=== PATIENT | female | born 1965 | race Caucasian/White ===

== ENCOUNTER → 2017-03-27 | Emergency (ER) | payer OTHER ==
[~2017-03-27] VITALS: Ht 144.8 cm; Wt 73.8 kg
[~2017-03-27] MED LIST: ALBU8.5H6 IH; ALPR0.5T PO; CELE200C PO; CELE400C PO; DIPHTH,PERTUSS(ACELL),TET TOX 0.5 ML DISP.SYRIN. VAX IM ONE; FENT1PAT15 TP; FLUC100T7 PO; GABA-585 PO; IPRA3AMP NEB; OMEP40CA5 PO; ONDA4TAB10 SL; ONDANSETRON ODT 4 MG TAB.RAPDIS PO ONE; OXYC20TA PO; PRED2.5T PO; PROM118S2 PO; PROM25TA10 PO; QUET100T4 PO; QUET50TA5 PO; SOLI10TA2 PO; SUMA100T4 PO; TEMA30CA PO; TIZA6CAP3 PO; TRAZ50TA15 PO; ZOLP10TA PO; oxyCODONE/APAP 5/325 1 TAB TABLET PO ONE
[2017-03-27 20:00] VITALS: BP 120/62
--- NOTE | 2017-03-27 21:05 | PHYS DOC ---
Past History Past Medical History: Anxiety, Depression, GERD, Other Past Surgical History: Hip Replacement, Hysterectomy, Other Alcohol Use: Rarely Drug Use: None Adult General Chief Complaint Chief Complaint: KNEE INJURY HPI HPI Patient is a 51-year-old female who presents here today secondary to falling out of her wheelchair and getting stuck in the bathroom for approximately 3-4 hours. Patient is complaining of pain to her right knee. Patient complaining of pain to her right ankles well. Patient denies any head trauma or loss of consciousness. Patient reports that her head hurts and she is trying to use her head to police herself from a stopped position however she denies any fall resulted in head trauma. Patient denies any loss of consciousness. Patient has a nausea vomiting diarrhea fevers shakes chills cough cold runny nose. Review of systems: Constitutional: Denies fever or chills Eyes: Denies change in visual acuity, redness, or eye pain HENT: Denies nasal congestion or sore throat All other systems were reviewed and found to be within normal limits, except as documented in this note. Physical exam Constitutional: Well developed, well nourished, no acute distress, non-toxic appearance. HENT: Normocephalic, atraumatic, bilateral external ears normal, oropharynx moist, no oral exudates, nose normal. Eyes: PERRLA, EOMI, conjunctiva normal, no discharge. Neck: Normal range of motion, no tenderness, supple, no stridor. Cardiovascular:Heart rate regular rhythm, Lungs & Thorax: Bilateral breath sounds clear to auscultation Abdomen: Nondistended. Skin: Warm, dry, no erythema, no rash. Back: No tenderness, no CVA tenderness. Extremities: No tenderness, no cyanosis, no clubbing, ROM intact, no edema. Neurologic: Alert and oriented X 3, normal motor function, normal sensory function, no focal deficits noted. Psychologic: Affect normal, judgement normal, mood normal. ER physical exam is significant for: Soft tissue swelling to her knee, and medial and lateral malleolus on the right side. Patient has superficial abrasions to her chin. Patient has no knee effusion. Patient's patella is non- ballotable. Patient has no significant ligament laxity to her right knee. Patient has no C-spine T-spine or L-spine tenderness to palpation. Patient does have some mild tenderness to right shoulder. X-ray right knee: No acute fracture dislocation as interpreted by ER physician. X-ray right ankle: No acute fracture dislocation as interpreted by ER physician. Assessment and plan: 1. 51-year-old female who presents here today secondary to recent fall. Patient' s workup in the ER is been unremarkable. Patient had a negative x-ray of her right knee and ankle. Patient be discharged home and instructed to continue taking her OxyContin at home. Patient was given 2 Percocets here in the ED as well as Zofran to assist her with her nausea. Patient has no evidence of intracranial, intrathoracic, neurological deficits. Patient is stable for discharge and outpatient workup. Current Medications Current Medications Current Medications Medications (Trade) Dose Ordered Sig/Magaly Start Time Stop Time Status Last Admin Dose Admin Diphtheria/ Tetanus/Acell Pertussis (Boostrix) 0.5 ml ONCE ONCE 03/27/17 20:30 03/27/17 20:31 DC Ondansetron HCl (Zofran Odt) 4 mg 1X ONCE 03/27/17 21:00 03/27/17 21:01 Oxycodone/ Acetaminophen (Percocet 5/325) 2 tab 1X ONCE 03/27/17 21:00 03/27/17 21:01 Allergies Allergies Allergies Coded Allergies Type Severity Reaction Last Updated Verified bee venom (honey bee) Allergy Intermediate 09/14/14 Yes codeine Allergy Intermediate 09/14/14 Yes meperidine Allergy Intermediate 09/14/14 Yes morphine Allergy Intermediate 09/14/14 Yes naproxen Allergy Intermediate 03/24/14 Yes shellfish derived Allergy Intermediate 09/14/14 Yes solifenacin Allergy Intermediate 03/24/14 Yes wasp venom Allergy Intermediate 03/24/14 Yes hydrocodone Allergy Unknown 09/09/14 Yes Current Patient Data Vital Signs Vital Signs Date Time Temp Pulse Resp B/P (MAP) Pulse Ox O2 Delivery O2 Flow Rate FiO2 03/27/17 20:00 98.1 78 18 98 Room Air EKG EKG [] Radiology/Procedures Radiology/Procedures [] Course & Med Decision Making Course & Med Decision Making Pertinent Labs and Imaging studies reviewed. (See chart for details) [] Dragon Disclaimer Dragon Disclaimer This electronic medical record was generated, in whole or in part, using a voice recognition dictation system. Departure Departure: Impression: Primary Impression: Right knee injury Additional Impressions: Right ankle injury Fall from wheelchair Disposition: 01 HOME, SELF-CARE Condition: IMPROVED Referrals: CORETTA CRUZ MD (PCP) Patient Instructions: Ankle Sprain, Fall Prevention and Home Safety, Knee Pain Scripts Ondansetron (ZOFRAN ODT) 4 Mg Tab.rapdis 1 TAB SL Q8HRS for NAUSEA, #15 TAB Prov: CARLTON SALAS MD 03/27/17 Problem Qualifiers CARLTON SALAS MD Mar 27, 2017 21:05
--- NOTE | 2017-03-28 07:45 | RAD ---
EXAM: Right ankle 3 views. HISTORY: Trauma, right ankle pain and swelling COMPARISON: None. FINDINGS: Three views of the right ankle are obtained. There are projectional limitations. An ossicle at the tip of the lateral malleolus is consistent with a chronic avulsion injury. There is soft tissue swelling laterally. There is no acute fracture. Alignment is normal. Joint spaces are maintained. IMPRESSION: 1. Chronic avulsion fracture at the tip of the lateral malleolus. No acute fracture. Lateral soft tissue swelling.
--- NOTE | 2017-03-28 07:47 | RAD ---
EXAM: Right knee, 3 views HISTORY: Trauma, fall, right knee pain. COMPARISON: None. FINDINGS: There are projectional limitations from patient immobility. No fractures are identified. The medial compartmental joint space appears at least mildly narrowed. Osteopenia is at least mild. Alignment is normal. There is no joint effusion. IMPRESSION: 1. Projectional limitations. No fractures are identified. Mild medial compartmental osteoarthritis is suspected.
== END | disposition home or self-care (01) ==
LOC: ER 19:51
DX: S99.911A Unspecified injury of right ankle, initial encounter (principal); S89.91XA Unspecified injury of right lower leg, initial encounter; R11.2 Nausea with vomiting, unspecified; R19.7 Diarrhea, unspecified; R50.9 Fever, unspecified; K21.9 Gastro-esophageal reflux disease without esophagitis; Z88.8 Allergy status to other drugs, medicaments and biological substances; Z88.1 Allergy status to other antibiotic agents; Z91.030 Bee allergy status; Z91.038 Other insect allergy status; Z88.5 Allergy status to narcotic agent; Z91.013 Allergy to seafood; W05.0XXA Fall from non-moving wheelchair, initial encounter; Y93.89 Activity, other specified; Y99.8 Other external cause status; Y92.89 Other specified places as the place of occurrence of the external cause
CPT/HCPCS: 73562; 73610; 90471; 90715; 99284; Q0162

== ENCOUNTER 2017-05-31 16:59 | Emergency (ER) | payer OTHER ==
[~2017-05-31 16:59] MED LIST changes: -DIPHTH,PERTUSS(ACELL),TET TOX 0.5 ML DISP.SYRIN. VAX IM ONE; -ONDANSETRON ODT 4 MG TAB.RAPDIS PO ONE; -oxyCODONE/APAP 5/325 1 TAB TABLET PO ONE
--- NOTE | 2017-05-31 17:40 | PHYS DOC ---
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 Also, marked muscular skeletal dysfunction, and a history of asthma who presents here today secondary to right-sided chest wall and rib pain that she sustained after falling from her wheelchair approximately 4 PM today. Patient denies any head trauma or loss of consciousness. Patient denies any discomfort anywhere else other than in her anterior chest wall. After her fall, the patient was able to contact EMS via her life alert button. In route she received fentanyl with significant relief in her discomfort although the patient is still complaining of a 6 out of 10 discomfort to her anterior chest wall. Patient denies any other symptomatology at this time. Patient has a nausea vomiting diarrhea cough cold runny nose. Patient reports she's having a significant amount of pain with deep inspiration secondary to her recent trauma. Review of systems: Constitutional: Denies fever or chills Eyes: Denies change in visual acuity, redness, or eye pain HENT: Denies nasal congestion or sore throat Respiratory: Denies cough or shortness of breath All other systems were reviewed and found to be within normal limits, except as documented in this note. Physical exam: Constitutional: Well developed, well nourished, no acute distress, non-toxic appearance. HENT: Normocephalic, atraumatic, bilateral external ears normal, nose normal. Eyes: PERRLA, EOMI, conjunctiva normal, no discharge. Neck: Normal range of motion, no tenderness, supple, no stridor. Cardiovascular: Heart rate regular rhythm, Lungs & Thorax: Bilateral breath sounds clear to auscultation no wheezing rales or rhonchi. No crepitance palpation. Patient left tenderness palpation to her right lower anterior and lateral chest wall. No visible bruising, abrasion, or visible trauma noted on skin. Abdomen: No abdominal distention. No tenderness to palpation to her left upper or right upper quadrants. No evidence of intra-abdominal pathology. Skin: Warm, dry, no erythema, no rash. Extremities: No tenderness, no cyanosis, no clubbing, ROM intact, no edema. Neurologic: Alert and oriented X 3, patient has marked spasticity. Patient continues to have marked tremors throughout her body. Psychologic: Affect normal, judgement normal, mood normal. Chest x-ray as interpreted by ER physician reveals: Labs reviewed: Assessment and plan: 1. 51-year-old female who presents here today secondary to falling out of her wheelchair sustaining right-sided anterior chest wall pain. Patient did receive fentanyl by EMS with some relief in her discomfort however she still complaining of discomfort to that area. Patient is given Dilaudid 1 mg IV in the ED and will also be given Toradol 50 mg IV. Chest x-ray of her right ribs have been ordered. Allergies Allergies Allergies Coded Allergies Type Severity Reaction Last Updated Verified bee venom (honey bee) Allergy Intermediate 09/14/14 Yes codeine Allergy Intermediate 09/14/14 Yes meperidine Allergy Intermediate 09/14/14 Yes morphine Allergy Intermediate 09/14/14 Yes naproxen Allergy Intermediate 03/24/14 Yes shellfish derived Allergy Intermediate 09/14/14 Yes solifenacin Allergy Intermediate 03/24/14 Yes wasp venom Allergy Intermediate 03/24/14 Yes hydrocodone Allergy Unknown 09/09/14 Yes EKG EKG [] Radiology/Procedures Radiology/Procedures [] Course & Med Decision Making Course & Med Decision Making Pertinent Labs and Imaging studies reviewed. (See chart for details) [] Dragon Disclaimer Dragon Disclaimer This electronic medical record was generated, in whole or in part, using a voice recognition dictation system. Departure Departure: Impression: Primary Impression: Contusion of rib on left side Additional Impressions: Fall from wheelchair Spastic cerebral palsy Disposition: 01 HOME, SELF-CARE Condition: IMPROVED Referrals: CORETTA CRUZ MD (PCP) Patient Instructions: Rib Contusion Additional Instructions: Please continue with the pain medications that you're currently taking at home. Please follow-up with Dr. Cruz if your pain worsens. Return the ER if you have any further problems or unable to contact Dr. Cruz. Problem Qualifiers CARLTON SALAS MD May 31, 2017 17:40
[2017-05-31] MEDS ORDERED: HYDROmorphone PF 2 MG/ML VIAL ONE (17:44)
[2017-05-31] MEDS: ONDANSETRON PF 4 MG/2 ML VIAL. IV ONE (17:48)
[2017-05-31] MEDS: HYDROmorphone PF 2 MG/ML VIAL IV ONE (17:50)
[2017-05-31] MEDS ORDERED: HYDROmorphone PF 1 MG/ML DISP.SYRIN IM ONE (18:00)
[2017-05-31] MEDS ORDERED: HYDROmorphone PF 1 MG/ML DISP.SYRIN IV ONE (18:00)
[2017-05-31 18:32] VITALS: BP 100/43
--- NOTE | 2017-06-01 07:14 | RAD ---
Right RIBS with chest, 05/31/2017: History: Fall, pain The images are partially compromised by patient motion artifact. No rib fracture is identified. There appears to be mild right basilar atelectasis. There is no evidence of underlying pneumothorax or hemothorax. There is a moderate thoracolumbar scoliosis. IMPRESSION: No acute right rib abnormality is detected.
== END 2017-05-31 18:50 | disposition home or self-care (01) ==
LOC: ER 16:59
DX: S20.212A Contusion of left front wall of thorax, initial encounter (principal); G80.1 Spastic diplegic cerebral palsy; J45.909 Unspecified asthma, uncomplicated; K21.9 Gastro-esophageal reflux disease without esophagitis; Z88.8 Allergy status to other drugs, medicaments and biological substances; Z88.6 Allergy status to analgesic agent; Z88.1 Allergy status to other antibiotic agents; Z91.030 Bee allergy status; Z91.038 Other insect allergy status; Z88.5 Allergy status to narcotic agent; Z91.013 Allergy to seafood; W05.0XXA Fall from non-moving wheelchair, initial encounter; Y93.89 Activity, other specified; Y99.8 Other external cause status; Y92.89 Other specified places as the place of occurrence of the external cause
CPT/HCPCS: 71101; 96374; 96375; 99284; J1170; J2405

== ENCOUNTER 2019-03-16 11:57 | Inpatient (IN) | payer OTHER ==
[~2019-03-16] VITALS: Ht 144.8 cm; Wt 69.1 kg
[~2019-03-16 11:57] MED LIST changes: -IPRA3AMP NEB; +IPRA3AMP29 NEB; +OMEP40CA45 PO; -OMEP40CA5 PO; -PROM118S2 PO; +PROM118S5 PO; +TRAZ-120 PO; -TRAZ50TA15 PO
[2019-03-16] MEDS ORDERED: KETOROLAC 30 MG/ML VIAL. ONE (12:06)
[2019-03-16] MEDS ORDERED: KETOROLAC 30 MG/ML VIAL. IM ONE (12:15)
[2019-03-16] MEDS ORDERED: ALBUTEROL SULFATE 8GM INHALER. IH PRN (12:15)
[2019-03-16] MEDS ORDERED: PROMETHAZINE 25 MG TABLET. PO PRN (12:15)
[2019-03-16] MEDS ORDERED: ONDANSETRON ODT 4 MG TAB.RAPDIS PO PRN (12:15)
[2019-03-16] MEDS ORDERED: diphenhydrAMINE 50 MG/ML VIAL IVP PRN (12:15)
[2019-03-16] MEDS ORDERED: ONDANSETRON ODT 4 MG TAB.RAPDIS PO ONE (12:15)
[2019-03-16] MEDS: IV NORMAL SALINE 1,000ML 1,000 ML IV SCH ×2 (12:15→23:11)
[2019-03-16 12:20] VITALS: BP 179/100
[2019-03-16] MEDS ORDERED: ALBUTEROL SULFATE 2.5 MG/3 ML NEBU. NEB PRN (12:30)
[2019-03-16] MEDS ORDERED: cloNIDine TTS-2 1 PATCH PATCH TD SCH (13:00)
[2019-03-16] MEDS ORDERED: IOHEXOL 240 MG/ML 50ML VIAL. PO ONE (13:45)
[2019-03-16] MEDS ORDERED: IOHEXOL 300 MG/ML 75 ML VIAL. IV ONE (13:45)
[2019-03-16 13:48] LABS: BASO % 0 % (0-3); EOS % 0 % (0-3); HEMATOCRIT 44.8 % (36.0-47.0); HEMOGLOBIN 15.1 g/dL (12.0-15.5); LYMPH # 0.8 x10^3/uL (1.0-4.8); LYMPH % 8 % (24-48); MEAN CORPUSCULAR HEMOGLOBIN 29 pg (25-35); MEAN CORPUSCULAR HGB CONC 34 g/dL (31-37); MEAN CORPUSCULAR VOLUME 87 fL (79-100); MONO # 0.2 x10^3/uL (0.0-1.1); MONO % 2 % (0-9); NEUT # 9.8 x10^3uL (1.8-7.7); NEUT % 90 % (31-73); PLATELET COUNT 269 x10^3/uL (140-400); RED BLOOD COUNT 5.16 x10^6/uL (3.50-5.40); RED CELL DISTRIBUTION WIDTH 13.2 % (11.5-14.5); WHITE BLOOD COUNT 10.9 x10^3/uL (4.0-11.0)
[2019-03-16 13:59] LABS: ALBUMIN 3.9 g/dL (3.4-5.0); CALCIUM 9.1 mg/dL (8.5-10.1); CREATININE 0.9 mg/dL (0.6-1.0); GFR 65.8; POTASSIUM 4.2 mmol/L (3.5-5.1); TOTAL BILIRUBIN 0.3 mg/dL (0.2-1.0); TOTAL PROTEIN 7.7 g/dL (6.4-8.2)
[2019-03-16] MEDS: ONDANSETRON ODT 4 MG TAB.RAPDIS PO SCH ×2 (14:00→21:10)
[2019-03-16] MEDS: KETOROLAC 30 MG/ML VIAL. IVP PRN ×2 (14:04→23:13)
[2019-03-16] MEDS ORDERED: ONDANSETRON PF 4 MG/2 ML VIAL. IVP PRN (15:30)
[2019-03-16 15:36] VITALS: BP 127/76
[2019-03-16] MEDS: IPRATRPIUM/ALBUTEROL 0.5/2.5MG 3 ML NEBU. NEB SCH ×2 (16:45→22:01)
[2019-03-16 16:47] LABS: BACTERIA,URINE 0 /HPF (0-FEW); BILIRUBIN,URINE NEG (NEG); CLARITY,URINE CLEAR; COLOR,URINE YELLOW; GLUCOSE,URINE NEG (NEG); NITRITE,URINE NEG (NEG); RBC,URINE 0 /HPF (0-2); SQUAMOUS EPITHELIAL CELL,UR OCC /LPF; UROBILINOGEN,URINE 0.2 mg/dL (0.2 mg/dL); WBC,URINE OCC /HPF (0-4)
--- NOTE | 2019-03-16 16:53 | RAD ---
CT ABD PELV W/ORAL IV CONTRAST Indication: Severe abdominal pain, nausea and vomiting. Exposure: One or more of the following individualized dose reduction techniques were utilized for this examination: 1. Automated exposure control 2. Adjustment of the mA and/or kV according to patient size 3. Use of iterative reconstruction technique. Technique: Intravenous contrast was given. Oral contrast was given. Comparison: March 24, 2014. FINDINGS: There is image degradation due to patient motion. Lung bases are clear. Liver and spleen are unremarkable. Pancreas unremarkable. No evidence of adrenal mass. Kidneys demonstrate symmetric enhancement without focal mass or hydronephrosis. No evidence of calcified gallstone. Aorta is nonaneurysmal. No significant lymph node enlargement. No significant small bowel distention proximally. The more distal small bowel loops are mildly distended with fluid. Mild stranding within the adjacent fat. No evidence of acute colitis. The appendix appears normal. No evidence of ascites. No evidence of pneumoperitoneum. Urinary bladder is not adequately distended for evaluation. No evidence of pelvic mass. Trace free pelvic fluid. No evidence of pneumoperitoneum. Degenerative changes involving the spine with left convexity scoliosis. Deformity and degenerative change at the right hip may be developmental or due to old trauma. IMPRESSION: 1. Mild distention of distal small bowel loops with fluid, nonspecific but could indicate a mild enteritis. Mild stranding within the adjacent fat. 2. Trace free pelvic fluid. Electronically signed by: John Storm MD (03/16/2019 4:50 PM) [facility]
[2019-03-16] MEDS: tiZANidine 4 MG TABLET. PO PRN (18:00)
[2019-03-16 19:00] VITALS: BP 126/80
[2019-03-16] MEDS: QUEtiapine 100 MG TABLET. PO SCH (21:09)
[2019-03-16] MEDS: PANTOPRAZOLE 40 MG TABLET. PO SCH (21:09)
[2019-03-16] MEDS: traZODone 50 MG TABLET. PO SCH (21:09)
[2019-03-16] MEDS: ENOXAPARIN ** NOTE DOSE ** SYRINGE SQ SCH (21:09)
[2019-03-16] MEDS: ALPRAZolam 0.5 MG TABLET PO PRN (21:10)
--- NOTE | 2019-03-16 22:29 | HP ---
ADMIT DATE: 03/16/2019 HISTORY OF PRESENT ILLNESS: The patient has had a 2-3 day history of severe abdominal pain with nausea and vomiting. The patient has a history of cerebral palsy. She became increasingly dehydrated. Blood pressure was markedly elevated at 180/100. The patient was admitted for dehydration, abdominal pain and further evaluation on other testing and rehydration, of course. PAST MEDICAL HISTORY: As noted, she has a history of cerebral palsy, GERD, hysterectomy, left ovary removed, musculoskeletal problems, severe arthritis, osteoarthritis of the left foot, left arthroscopic knee surgery, right shoulder surgery, depression. IMMUNIZATIONS: Pneumonia, pneumococcal and influenza are up-to-date, possible anesthesia reaction. FAMILY HISTORY: Mother with diabetes and a stroke. Father with cancer and sister with cancer. ALLERGIES: THE PATIENT HAS ADVERSE REACTION TO HONEY BEE STINGS, CODEINE, HYDROCODONE, MEPERIDINE, MORPHINE, NAPROXEN, ALTHOUGH SHE DENIES THAT ON NAPROXEN, SHELLFISH DERIVED, VESICARE, WASP VENOM. SOCIAL HISTORY: The patient denies smoking, alcohol or drug use. Lives at home with her . REVIEW OF SYSTEMS: The patient denies any headaches, visual changes, blurred vision, double vision. Has severe abdominal pain primarily in the epigastric area, nausea and vomiting noted. The patient, in turn, neurologically baseline for her, except feeling very uncomfortable with the abdominal pain. No diarrhea, melena, hematochezia or hematemesis. PHYSICAL EXAMINATION: VITAL SIGNS: Blood pressure 179/100, respiratory rate 22, pulse 90, afebrile, 95% oxygen. HEENT: The patient's head was atraumatic, normocephalic. Eyes: PERRLA without jaundice. The mouth and throat were normal. NECK: Supple, without JVD, carotid bruits. No thyromegaly. LUNGS: Diminished, but clear. CARDIOVASCULAR: Regular sinus rhythm. ABDOMEN: Soft, diffuse tenderness in the epigastric area, guarding, but no rebounding, positive bowel sounds, hyperactive. EXTREMITIES: No clubbing, cyanosis, nor edema. NEUROLOGIC: The patient was alert and oriented x 3. LABORATORY DATA: Pretty much unremarkable. White count 10. Chemistries outside of an elevated lactic acid and an elevated D-dimer, everything else looks normal. We will go ahead and continue to monitor the patient accordingly, make further evaluation. The patient's CT scan showed mild distention of the distal small bowel loops with fluid, nonspecific for possible enteritis. The patient will continue to be monitored carefully, make further evaluation on her as indicated. IMPRESSION: Gastroenteritis, dehydration, elevated lactic acid, which I believe is probably related to her dehydration. No signs of infection can be entertained. We will get a V/Q scan. CORETTA CRUZ MD DR: CAMILLE/vidhya JOB#: [id number] / [id number]
[2019-03-16 23:00] VITALS: BP 129/79
[2019-03-17] MEDS: tiZANidine 4 MG TABLET. PO PRN ×2 (00:05→20:03)
--- NOTE | 2019-03-17 03:14 | RAD ---
CHEST AP ONLY History: Positive lactic acid. Comparison: May 31, 2017 Findings: No consolidation or pleural effusion. Normal heart size. No pneumothorax. Bilateral glenohumeral DJD. Right basilar calcified granuloma. Impression: 1. No acute cardiopulmonary process. Electronically signed by: Scott Cline DO (03/17/2019 3:11 AM) [id number]
[2019-03-17 03:43] LABS: FECAL OB PT POSITIVE (NEG)
[2019-03-17 05:41] VITALS: BP 126/79
[2019-03-17] MEDS: IPRATRPIUM/ALBUTEROL 0.5/2.5MG 3 ML NEBU. NEB SCH ×4 (05:51→20:00)
[2019-03-17] MEDS: ONDANSETRON ODT 4 MG TAB.RAPDIS PO SCH ×4 (06:00→21:03)
[2019-03-17] MEDS: IV NORMAL SALINE 1,000ML 1,000 ML IV SCH ×3 (06:03→20:04)
[2019-03-17 06:43] LABS: BASO # 0.1 x10^3/uL (0.0-0.2); BASO % 1 % (0-3); EOS # 0.2 x10^3/uL (0.0-0.7); EOS % 3 % (0-3); HEMOGLOBIN 12.2 g/dL (12.0-15.5); LYMPH % 31 % (24-48); MEAN CORPUSCULAR HEMOGLOBIN 29 pg (25-35); MEAN CORPUSCULAR HGB CONC 33 g/dL (31-37); MEAN CORPUSCULAR VOLUME 87 fL (79-100); MONO # 0.3 x10^3/uL (0.0-1.1); MONO % 5 % (0-9); NEUT # 3.8 x10^3uL (1.8-7.7); NEUT % 60 % (31-73); PLATELET COUNT 189 x10^3/uL (140-400); RED BLOOD COUNT 4.25 x10^6/uL (3.50-5.40); RED CELL DISTRIBUTION WIDTH 13.5 % (11.5-14.5); WHITE BLOOD COUNT 6.4 x10^3/uL (4.0-11.0)
[2019-03-17 06:52] LABS: CREATININE 0.7 mg/dL (0.6-1.0); GFR 87.9; POTASSIUM 3.2 mmol/L (3.5-5.1)
[2019-03-17] MEDS: ENOXAPARIN ** NOTE DOSE ** SYRINGE SQ SCH (08:43)
[2019-03-17] MEDS: QUEtiapine 100 MG TABLET. PO SCH ×2 (08:43→22:07)
[2019-03-17] MEDS ORDERED: ELECTROLYTE (NON-ICU) PROTOCOL MC PRN (09:15)
[2019-03-17] MEDS ORDERED: POTASSIUM CHLORIDE 20 MEQ TABLET.ER. PO ONE (09:30)
[2019-03-17] MEDS: NALBUPHINE 10 MG/ML AMPUL. IV PRN ×3 (10:11→20:03)
--- NOTE | 2019-03-17 10:38 | RAD ---
Abdominal ultrasound HISTORY: Right upper quadrant pain. Findings: Study is limited due to bowel gas as well as patient tremors during the exam. Pancreas, aorta and inferior vena cava are poorly visualized. Liver is not enlarged. No evidence of focal hepatic lesion. No significant biliary ductal dilatation. No evidence of cholelithiasis or gallbladder wall thickening. The right kidney is poorly seen, measures about 7.5 cm longitudinal. The left kidney measures 9.3 cm longitudinal without hydronephrosis or focal mass by ultrasound. Spleen is not enlarged. IMPRESSION: 1. Exam limited due to bowel gas and patient movement. 2. No evidence of cholelithiasis or gallbladder wall thickening. Electronically signed by: John Storm MD (03/17/2019 10:34 AM) [id number]
[2019-03-17 11:07] VITALS: BP 144/61
--- NOTE | 2019-03-17 12:19 | PN ---
DATE: SUBJECTIVE: The patient is still in a lot of pain. She is requiring IV Nubain. The patient is still having some abdominal discomfort, but no nausea. She is still very tender throughout her abdomen. She has had some blood in her stool. We will continue to evaluate her, take her off the Lovenox. Nuclear medicine scan still pending and I will continue to monitor her there. OBJECTIVE: VITAL SIGNS: Blood pressure 126/79, respiratory rate 18, pulse 86, temperature afebrile. GENERAL: The patient is alert and oriented. LUNGS: Clear. CARDIOVASCULAR: Stable. ABDOMEN: Soft, diffuse tenderness, but not quite as bad as it was yesterday, improved. EXTREMITIES: No clubbing, cyanosis or edema. NEUROLOGIC: The patient of course has constant tremor from her CP. LABORATORY DATA: The patient's labs were basically fairly stable. Hemoglobin has dropped, it could be from dehydration, down to 12, still in range. Chemistries show low potassium. She is on electrolyte replacement. Her lactic acid yesterday was elevated. Her D-dimer was elevated. The patient had blood in the stool as noted. Otherwise, we will continue on some antibiotics, fluids, monitoring her, get the V/Q scan, SCD hoses and make adjustments accordingly or possibly even may have to send her for further evaluation. Blood pressure has been brought under good control. The Toradol was not giving her pain relief. IMPRESSION: Severe abdominal pain with nausea, vomiting, dehydration, gastroenteritis, melena, hypertension, cerebral palsy. CORETTA CRUZ MD DR: CAMILLE/vidhya JOB#: [id number] / [id number]
--- NOTE | 2019-03-17 14:47 | RAD ---
Examination: LUNG VENT/PERFUSION SCAN(VQ) History: elevated d-dimer Comparison/Correlation: 06/29/2012 to chest x-ray Findings: 8 mCi xenon-133 gas was administered for ventilation imaging. Images performed in anterior and posterior projections. Delayed washout of radiotracer which may represent COPD is noted. No ventilation defect. 5 mCi technetium 99m MAA was intravenously administered for purposes of perfusion imaging. Imaging in 8 projections was performed. No perfusion defect identified. No suspicious or mismatched defect. Impression: Low probability for pulmonary embolism. Electronically signed by: Saad Barboza MD (03/17/2019 2:44 PM) [facility]
[2019-03-17 17:11] VITALS: BP 145/79
[2019-03-17] MEDS: PANTOPRAZOLE 40 MG TABLET. PO SCH (22:07)
[2019-03-17] MEDS: traZODone 50 MG TABLET. PO SCH (22:07)
[2019-03-17] MEDS: ALPRAZolam 0.5 MG TABLET PO PRN (22:07)
[2019-03-17 23:37] VITALS: BP 121/58
[2019-03-18] MEDS: NALBUPHINE 10 MG/ML AMPUL. IV PRN ×2 (01:08→10:41)
[2019-03-18] MEDS: IV NORMAL SALINE 1,000ML 1,000 ML IV SCH ×2 (04:15→12:15)
[2019-03-18] MEDS: IPRATRPIUM/ALBUTEROL 0.5/2.5MG 3 ML NEBU. NEB SCH ×2 (05:45→10:03)
[2019-03-18 05:48] VITALS: BP 158/90
[2019-03-18] MEDS: ONDANSETRON ODT 4 MG TAB.RAPDIS PO SCH (05:48)
[2019-03-18] MEDS: QUEtiapine 100 MG TABLET. PO SCH (09:02)
[2019-03-18 09:34] LABS: BASO % 1 % (0-3); EOS # 0.2 x10^3/uL (0.0-0.7); EOS % 5 % (0-3); HEMOGLOBIN 12.2 g/dL (12.0-15.5); LYMPH # 1.3 x10^3/uL (1.0-4.8); LYMPH % 29 % (24-48); MEAN CORPUSCULAR HEMOGLOBIN 29 pg (25-35); MEAN CORPUSCULAR HGB CONC 34 g/dL (31-37); MEAN CORPUSCULAR VOLUME 87 fL (79-100); MONO # 0.3 x10^3/uL (0.0-1.1); MONO % 6 % (0-9); NEUT # 2.6 x10^3uL (1.8-7.7); NEUT % 58 % (31-73); PLATELET COUNT 177 x10^3/uL (140-400); RED BLOOD COUNT 4.16 x10^6/uL (3.50-5.40); RED CELL DISTRIBUTION WIDTH 13.6 % (11.5-14.5); WHITE BLOOD COUNT 4.4 x10^3/uL (4.0-11.0)
[2019-03-18 09:40] LABS: CALCIUM 8.2 mg/dL (8.5-10.1); CREATININE 0.8 mg/dL (0.6-1.0); GFR 75.3; POTASSIUM 3.3 mmol/L (3.5-5.1)
[2019-03-18] MEDS ORDERED: POTASSIUM CHLORIDE 20 MEQ TABLET.ER. PO ONE (10:15)
[2019-03-18 11:21] VITALS: BP 174/71
[2019-03-18] MEDS ORDERED: OXYC20TA PO (12:55)
[2019-03-19] MEDS ORDERED: fentaNYL 25MCG/HR 1 PATCH PATCH TD SCH (09:00)
== END 2019-03-18 14:07 | disposition home or self-care (01) | DRG 392 ==
LOC: 1 SOUTH 11:57
PROVIDERS: ADMIT Family Medicine; ATTEND Family Medicine
DX: K52.9 Noninfective gastroenteritis and colitis, unspecified (principal); E86.0 Dehydration; G80.9 Cerebral palsy, unspecified; K21.9 Gastro-esophageal reflux disease without esophagitis; I10 Essential (primary) hypertension; F32.9 Major depressive disorder, single episode, unspecified; M19.072 Primary osteoarthritis, left ankle and foot; Z83.3 Family history of diabetes mellitus; Z82.3 Family history of stroke; Z80.9 Family history of malignant neoplasm, unspecified; Z88.8 Allergy status to other drugs, medicaments and biological substances; Z88.6 Allergy status to analgesic agent; Z91.013 Allergy to seafood; Z90.710 Acquired absence of both cervix and uterus; Z90.721 Acquired absence of ovaries, unilateral
CPT/HCPCS: 36415; 71045; 74177; 76700; 78582; 80048; 80053; 81001; 82274; 82550; 83605; 83690; 84145; 84484; 85025; 85379; 94640; 96374; A9540; A9558; J0696; J1650; J1885; J2300; J2405; J7620; Q0162; Q9966; Q9967; J7030

== ENCOUNTER → 2019-04-24 | Outpatient (CLI) | payer OTHER ==
--- NOTE | 2019-04-24 15:00 | RAD ---
UPPER GI WO KUB History: Gastritis Comparison: March 16, 2019 CT exam Findings: Upper GI exam was performed. No hiatal hernia was identified. No episodes of reflux were demonstrated during exam. Esophageal caliber is within normal limits. No significant stricture was identified of the esophagus. Esophageal motility was within normal limits although there was some residual contrast in the esophagus with patient in prone oblique position, subsequent clearing when patient was placed in upright position. There was normal relaxation of the lower esophageal sphincter. No appreciable gastric or duodenal ulcer was identified. There is lumbar levoscoliosis. Small calcification in the left pelvis may be a phlebolith. There is degenerative change of the right hip. Fluoroscopy time 1.6 minutes, 32 images Impression: 1. There was some residual contrast in esophagus with patient in prone oblique position although clearing when patient was placed in upright position. Otherwise no significant abnormality was identified. Electronically signed by: William Wilhelm MD (04/24/2019 2:57 PM) [facility]
== END | disposition home or self-care (01) ==
LOC: DXRAD 09:54
PROVIDERS: ATTEND Internal Medicine Gastroenterology
DX: R11.2 Nausea with vomiting, unspecified (principal); Z87.19 Personal history of other diseases of the digestive system
CPT/HCPCS: 74240

== ENCOUNTER → 2019-06-16 | Outpatient (CLI) | payer OTHER ==
[~2019-06-16] MED LIST changes: +SINCALIDE 1.36 MCG in IV NORMAL SALINE 50ML 30 ML IV ONE
--- NOTE | 2019-06-16 10:17 | RAD ---
Complete abdominal ultrasound 06/16/2019 INDICATION: Right upper quadrant pain COMPARISON STUDY: Abdominal ultrasound March 17, 2019 Discussion: Ultrasound evaluation of the abdomen was performed. Static images are submitted to PACS. Visualized portions of the pancreatic head and body are unremarkable. Distal pancreas is nonvisualized. Visualized portions of the aorta and IVC are unremarkable. The liver appears be normal in size measuring approximately 12 cm longitudinally. Portal venous flows in the normal direction. Hepatic echotexture appears to be grossly normal. The gallbladder is normal in appearance without evidence of wall thickening, stones, or sludge. Common bile duct is nondilated measuring 3 mm in diameter. Visualization of the right kidney is somewhat limited, though the right kidney appears somewhat small measuring 8.1 cm longitudinally. Spleen is normal in size measuring 10 cm longitudinally. Left kidney is normal in appearance measuring 10.2 cm in length. IMPRESSION: 1. Limited evaluation of the right kidney with possible mild atrophic change. 2. Limited visualization of the pancreas 3. No acute sonographic abnormality is identified Electronically signed by: Messi Neves MD (06/16/2019 10:14 AM) [id number]
--- NOTE | 2019-06-16 12:39 | RAD ---
HEPATOBILIARY SCAN WITH EJECTION FRACTION 06/16/2019 12:36 PM History: Nausea and vomiting x1 year Procedure: Serial static images are obtained of the liver and biliary system in the frontal projection following IV administration of 5.5 mCi of Technetium 99m Choletec. After filling of the gallbladder, 1.36 mcg of sincalide were infused over 30 minutes and dynamic imaging continued over this period. The gallbladder ejection fraction was calculated. Findings: There is prompt hepatic clearance of tracer from the blood pool. There is homogeneous distribution throughout the liver. The gallbladder ejection fraction measures 95 % (normal gallbladder EF is 35% or greater). IMPRESSION: 1. The cystic duct and common bile duct are patent. Negative for acute cholecystitis. 2. The gallbladder ejection fraction is normal Electronically signed by: Messi Neves MD (06/16/2019 12:37 PM) [id number]
== END | disposition home or self-care (01) ==
LOC: US 08:11
PROVIDERS: ATTEND Internal Medicine Gastroenterology
DX: R11.2 Nausea with vomiting, unspecified (principal)
CPT/HCPCS: 76700; 78227; A9537; J2805

== ENCOUNTER 2019-08-20 15:49 | Emergency (ER) | payer OTHER ==
[~2019-08-20] VITALS: Ht 144.8 cm; Wt 66.9 kg
[~2019-08-20 15:49] MED LIST changes: -SINCALIDE 1.36 MCG in IV NORMAL SALINE 50ML 30 ML IV ONE
--- NOTE | 2019-08-20 15:52 | PHYS DOC ---
Past History Past Medical History: Anxiety, Depression, GERD, Other Past Surgical History: Hip Replacement, Hysterectomy, Other Alcohol Use: Rarely Drug Use: None General Adult EDM: Chief Complaint: FOOT INJURY PAIN HPI: HPI: 53-year-old female history of cerebral palsy, who presents for evaluation of left ankle pain. The patient was attempting to get off the toilet prior to arrival, when she lost her footing and twisted her left ankle with inversion injury. She reports pain greatest the lateral and posterior aspect of the left ankle. She primarily mobilizes via wheelchair. No other areas of pain noted. No anticoagulants or antiplatelet use. Review of Systems: Review of Systems: General: No fevers, chills. ENT: No facial pain, epistaxis. CV: No chest pain, syncope. Resp: No shortness of breath, cough. GI: No abdominal pain, nausea, vomiting. Neuro: No headache, dizziness. MSK: No back pain. Reports left ankle pain. Skin: No acute rash, lesion. Remainder of systems reviewed and otherwise negative unless specified. Heart Score: Risk Factors: Risk Factors: DM, Current or recent (<one month) smoker, HTN, HLP, family history of CAD, obesity. Risk Scores: Score 0 - 3: 2.5% MACE over next 6 weeks - Discharge Home Score 4 - 6: 20.3% MACE over next 6 weeks - Admit for Clinical Observation Score 7 - 10: 72.7% MACE over next 6 weeks - Early Invasive Strategies Allergies: Allergies: Allergies Coded Allergies Type Severity Reaction Last Updated Verified codeine Allergy Intermediate 09/14/14 Yes meperidine Allergy Intermediate 09/14/14 Yes morphine Allergy Intermediate 09/14/14 Yes naproxen Allergy Intermediate 03/24/14 Yes shellfish derived Allergy Intermediate 09/14/14 Yes solifenacin Allergy Intermediate 03/24/14 Yes venom-honey bee Allergy Intermediate 09/14/14 Yes venom-wasp Allergy Intermediate 03/24/14 Yes hydrocodone Allergy Unknown 09/09/14 Yes Physical Exam: PE: Gen: NAD. Seated Tarik. Head: NC/AT Eyes: No scleral icterus. No conjunctival injection. ENT: MMM. Posterior OP clear. Neck: Supple. NT. CV: RRR. Peripheral pulses intact. Resp: CTAB. Abd: Soft. NT. ND. MSK: No peripheral cyanosis. No edema. Minimal limitations with active range of motion of the left toes. Tenderness and swelling at the left posterior lateral malleolus without overlying skin changes or open lesions. Toes are warm and well-perfused. Prior surgical scar overlying the left first metatarsal for "hammertoe" Neuro: Awake and alert. Distal sensation of the left foot and ankle intact. Skin: Warm. Dry. Psych: Appropriate mood & affect. EKG: EKG: [] Radiology/Procedures: Radiology/Procedures: EXAM: Left ankle, 3 views. HISTORY: Pain. COMPARISON: 03/27/2017 FINDINGS: 3 views of the left ankle are obtained. There is a small avulsion fracture fragment along the inferior lateral malleolus, of uncertain chronicity. There is a chronic appearing avulsion fracture fragment inferior medial malleolus. There is also a chronic appearing avulsion fracture fragment along the anterior talus. There is diffuse ankle soft tissue swelling. There are postoperative changes involving the first metatarsal and there is instrumented fusion of the first metatarsal phalangeal joint. There is a small bone island within the anterior calcaneus. There is spurring along the dorsal aspect of the tarsometatarsal joints. IMPRESSION: 1. Tiny avulsion fracture fragment along the inferior lateral malleolus, of uncertain chronicity. Correlate for point tenderness in this location. 2. Small chronic appearing avulsion fracture fragment along the inferior medial malleolus and anterior talus. 3. Soft tissue swelling. Electronically signed by: Reyna Orlando MD (08/20/2019 4:41 PM) [id number] Course & Med Decision Making: Course & Med Decision Making Pertinent Labs and Imaging studies reviewed. (See chart for details) In summary, 53-year-old female who presents with inversion injury of the left ankle with left lateral swelling. Neurovascular intact distally. Plain films of the left ankle were notable for chronic findings. There is the possibility of a small avulsion fracture of the left lateral malleolus of unclear chronicity. However, the presentation is likely most consistent with a sprain. Regardless, the patient will be Latrell wrap for comfort. The patient has a boot at home which the patient will utilize. Outpatient PMD and orthopedics follow-up. Return precautions given. Cristo Disclaimer: Cristo Disclaimer: This electronic medical record was generated, in whole or in part, using a voice recognition dictation system. Departure Departure: Impression: Primary Impression: Left ankle sprain Disposition: HOME, SELF-CARE Condition: STABLE Referrals: CORETTA CRUZ MD (PCP) JALEN REYES MD Patient Instructions: Ankle Sprain, [id number] Additional Instructions: Please utilize your boot at home. You may remove it when you sleep. If you have continued pain/swelling after 5 days, please follow up with orthopedics. Apply a cold pack to the ankle for no more than 15 minutes at a time. Take tylenol or motrin as needed for pain. SELVIN LEWIS DO Aug 20, 2019 15:52
[2019-08-20 16:07] VITALS: BP 110/74
--- NOTE | 2019-08-20 16:44 | RAD ---
EXAM: Left ankle, 3 views. HISTORY: Pain. COMPARISON: 03/27/2017 FINDINGS: 3 views of the left ankle are obtained. There is a small avulsion fracture fragment along the inferior lateral malleolus, of uncertain chronicity. There is a chronic appearing avulsion fracture fragment inferior medial malleolus. There is also a chronic appearing avulsion fracture fragment along the anterior talus. There is diffuse ankle soft tissue swelling. There are postoperative changes involving the first metatarsal and there is instrumented fusion of the first metatarsal phalangeal joint. There is a small bone island within the anterior calcaneus. There is spurring along the dorsal aspect of the tarsometatarsal joints. IMPRESSION: 1. Tiny avulsion fracture fragment along the inferior lateral malleolus, of uncertain chronicity. Correlate for point tenderness in this location. 2. Small chronic appearing avulsion fracture fragment along the inferior medial malleolus and anterior talus. 3. Soft tissue swelling. Electronically signed by: Reyna Orlando MD (08/20/2019 4:41 PM) [email or web address]
== END 2019-08-20 17:15 | disposition home or self-care (01) ==
LOC: ER 15:49
DX: S93.402A Sprain of unspecified ligament of left ankle, initial encounter (principal); K21.9 Gastro-esophageal reflux disease without esophagitis; G80.9 Cerebral palsy, unspecified; Z88.5 Allergy status to narcotic agent; Z88.8 Allergy status to other drugs, medicaments and biological substances; Z91.013 Allergy to seafood; Z91.030 Bee allergy status; X50.1XXA Overexertion from prolonged static or awkward postures, initial encounter; Y93.89 Activity, other specified; Y92.89 Other specified places as the place of occurrence of the external cause; Y99.8 Other external cause status
CPT/HCPCS: 73610; 99283

== ENCOUNTER 2021-05-04 23:07 | Emergency (ER) | payer OTHER ==
[~2021-05-04] VITALS: Ht 144.8 cm; Wt 70.5 kg
[~2021-05-04 23:07] MED LIST changes: -OMEP40CA45 PO; +OMEP40CA7 PO
--- NOTE | 2021-05-04 23:18 | PHYS DOC ---
Past History Past Medical History: Anxiety, Depression, GERD, Other Past Surgical History: Hip Replacement, Hysterectomy, Other Alcohol Use: Rarely Drug Use: None Adult General Chief Complaint Chief Complaint: ABDOMINAL PAIN HPI HPI Patient is a 55-year-old female with a past medical history of anxiety, depression, GERD and chronic abdominal issues, nausea and vomiting who presents for nausea and vomiting and abdominal pain Review of Systems Review of Systems Review of systems otherwise unremarkable except noted in HPI Allergies Allergies Allergies Coded Allergies Type Severity Reaction Last Updated Verified codeine Allergy Intermediate 09/14/14 Yes hydrocodone Allergy Intermediate 05/04/21 Yes meperidine Allergy Intermediate 09/14/14 Yes morphine Allergy Intermediate 09/14/14 Yes naproxen Allergy Intermediate 03/24/14 Yes shellfish derived Allergy Intermediate 09/14/14 Yes solifenacin Allergy Intermediate 05/04/21 Yes venom-honey bee Allergy Intermediate 09/14/14 Yes venom-wasp Allergy Intermediate 03/24/14 Yes Physical Exam Physical Exam Constitutional: Well developed, well nourished, no acute distress, non-toxic appearance. [] HENT: Normocephalic, atraumatic, bilateral external ears normal, oropharynx moist, no oral exudates, nose normal. [] Eyes: PERRLA, EOMI, conjunctiva normal, no discharge. [] Neck: Normal range of motion, no tenderness, supple, no stridor. [] Cardiovascular:Heart rate regular rhythm, no murmur [] Lungs & Thorax: Bilateral breath sounds clear to auscultation [] Abdomen: Bowel sounds normal, soft, no tenderness, no masses, no pulsatile masses. [] Skin: Warm, dry, no erythema, no rash. [] Back: No tenderness, no CVA tenderness. [] Extremities: No tenderness, no cyanosis, no clubbing, ROM intact, no edema. [] Neurologic: Alert and oriented X 3, normal motor function, normal sensory function, no focal deficits noted. [] Psychologic: Affect normal, judgement normal, mood normal. [] EKG EKG [] Radiology/Procedures Radiology/Procedures [] HISTORY: Umbilical abdominal pain. Abdomen findings: Calcified granulomas right lung base. Mild prominence of the bowel is likely related to cholecystectomy. Kidneys, adrenal glands, spleen, pancreas unremarkable. There is a small bowel obstruction with dilation of small bowel loops in the right upper quadrant to the right lower quadrant with transition point at the upper pelvis with small bowel feces sign at the transition point with collapse of the small bowel distal to that point to the ileocecal junction there is mild mesenteric edema transition point maximum small bowel diameter 3.2 cm whereas more distally the diameter is 1 this is likely due to an adhesion. The pancreas is negative. No abdominal fluid or adenopathy. Lumbar scoliosis. Pelvis findings: Hysterectomy. Ovaries absent. Bladder, rectum and bones are unremarkable. Osteoarthritis of the right hip and mild chronic collapse of the femoral head relative to the prior osteonecrosis or due to old trauma IMPRESSION: 1. Small bowel obstruction with transition point at the upper pelvis likely due to an adhesion. 2. The appendix is negative. Electronically signed by: Ashutosh Galdamez MD (05/05/2021 12:30 AM) [facility] [place]O Chest Pain: No Risk Factors: Risk Factors: DM, Current or recent (<one month) smoker, HTN, HLP, family history of CAD, obesity. Risk Scores: Risk Factors: DM, Current or recent (<one month) smoker, HTN, HLP, family history of CAD, obesity. Course & Med Decision Making Course & Med Decision Making Patient is a 55-year-old female who presents for abdominal pain associated with nausea vomiting Vital signs not concerning. Physical exam noted above. Patient placed on the monitor with IV access established and IV fluid given. Given antiemetics. Given pain medicine. Given antispasmodics as patient has cerebral palsy. Laboratory analysis notable for leukocytosis. CT notable for small bowel obstruction with transition point at upper pelvis likely due to adhesion. Patient made n.p.o. NG tube placed. Continued on IV fluid and pain medicine. Zosyn started. Discussed all findings with family. Recommended admission to [facility] for continued evaluation and treatment by the surgical staff. Family verbalized understanding agree with plan of transfer and admission. [] Dragon Disclaimer Dragon Disclaimer This electronic medical record was generated, in whole or in part, using a voice recognition dictation system. Departure Departure: Impression: Primary Impression: Small bowel obstruction Additional Impression: Nausea & vomiting Disposition: 02 [facility] Admitting Physician: Other Condition: STABLE Referrals: CORETTA CRUZ MD (PCP) Problem Qualifiers CHETNA SMALL MD May 04, 2021 23:18
[2021-05-04] MEDS ORDERED: ONDANSETRON PF 4 MG/2 ML VIAL. IVP ONE (23:30)
[2021-05-04] MEDS ORDERED: CONTRAST GIVEN. MC PRN (23:30)
[2021-05-04] MEDS ORDERED: IOHEXOL 300 MG/ML 75 ML VIAL. IV ONE (23:45)
[2021-05-05] MEDS ORDERED: diphenhydrAMINE 50 MG/ML VIAL IVP ONE
[2021-05-05 00:13] LABS: BASO # 0.1 x10^3/uL (0.0-0.2); BASO % 1 % (0-3); EOS # 0.1 x10^3/uL (0.0-0.7); EOS % 1 % (0-3); HEMATOCRIT 46.2 % (36.0-47.0); HEMOGLOBIN 15.5 g/dL (12.0-15.5); LYMPH # 2.1 x10^3/uL (1.0-4.8); LYMPH % 12 % (24-48); MEAN CORPUSCULAR HEMOGLOBIN 30 pg (25-35); MEAN CORPUSCULAR HGB CONC 33 g/dL (31-37); MEAN CORPUSCULAR VOLUME 89 fL (79-100); MONO # 0.7 x10^3/uL (0.0-1.1); MONO % 4 % (0-9); NEUT # 14.7 x10^3uL (1.8-7.7); NEUT % 83 % (31-73); PLATELET COUNT 364 x10^3/uL (140-400); RED BLOOD COUNT 5.22 x10^6/uL (3.50-5.40); RED CELL DISTRIBUTION WIDTH 13.1 % (11.5-14.5); WHITE BLOOD COUNT 17.7 x10^3/uL (4.0-11.0)
[2021-05-05 00:19] LABS: CALCIUM 9.5 mg/dL (8.5-10.1); GFR 57.8; POTASSIUM 3.8 mmol/L (3.5-5.1)
[2021-05-05 00:25] LABS: ALBUMIN 4.5 g/dL (3.4-5.0); ALBUMIN/GLOBULIN RATIO 1.2 (1.0-1.7); TOTAL BILIRUBIN 0.5 mg/dL (0.2-1.0); TOTAL PROTEIN 8.3 g/dL (6.4-8.2)
[2021-05-05 00:31] LABS: % BANDS 2 % (0-9); % LYMPHS 12 % (24-48); % MONOS 3 % (0-10); % SEGS 83 % (35-66); PLT ESTIMATE ADEQUATE (ADEQUATE)
--- NOTE | 2021-05-05 00:33 | RAD ---
CT abdomen and pelvis with contrast PQRS statement: CT scans at this facility use dose reduction including either automated exposure cont rol, iterative reconstructions, and /or weight based radiation dosing via mA and kV modification when appropriate to reduce radiation dose to as low as reasonably achievable. Contrast: 75 mL Omnipaque 300 intravenous contrast HISTORY: Umbilical abdominal pain. Abdomen findings: Calcified granulomas right lung base. Mild prominence of the bowel is likely relate d to cholecystectomy. Kidneys, adrenal glands, spleen, pancreas unremarkable. There is a small bowel obstruction with dilation of small bowel loops in the right upper quadrant to the right lower quadran t with transition point at the upper pelvis with small bowel feces sign at the transition point with collapse of the small bowel distal to that point to the ileocecal junction there is mild mesenteric e nilsa transition point maximum small bowel diameter 3.2 cm whereas more distally the diameter is 1 thi s is likely due to an adhesion. The pancreas is negative. No abdominal fluid or adenopathy. Lumbar sc oliosis. Pelvis findings: Hysterectomy. Ovaries absent. Bladder, rectum and bones are unremarkable. Osteoarthr itis of the right hip and mild chronic collapse of the femoral head relative to the prior osteonecros is or due to old trauma IMPRESSION: 1. Small bowel obstruction with transition point at the upper pelvis likely due to an adhesion. 2. The appendix is negative. Electronically signed by: Ashutosh Galdamez MD (05/05/2021 12:30 AM) [facility]
[2021-05-05 01:00] LABS: BACTERIA,URINE 0 /HPF (0-FEW); BILIRUBIN,URINE NEG (NEG); CLARITY,URINE CLEAR; COLOR,URINE YELLOW; GLUCOSE,URINE NEG (NEG); NITRITE,URINE NEG (NEG); RBC,URINE 0 /HPF (0-2); SQUAMOUS EPITHELIAL CELL,UR OCC /LPF; UROBILINOGEN,URINE 0.2 mg/dL (0.2 mg/dL); WBC,URINE OCC /HPF (0-4)
[2021-05-05] MEDS ORDERED: PIPERACILLIN/TAZOBACTAM 3.375 GM in IV NORMAL SALINE 50ML 50 ML IV ONE (01:00)
[2021-05-05] MEDS ORDERED: MIDAZOLAM HCL PF 5 MG/5 ML VIAL. IV ONE ×2 (01:00→03:30)
[2021-05-05] MEDS ORDERED: IV NORMAL SALINE 50ML 50 ML ONE (01:02)
[2021-05-05] MEDS ORDERED: PIPERACILLIN/TAZOBACTAM 3.375 GM VIAL IV ONE (01:02)
[2021-05-05] MEDS ORDERED: BENZOCAINE ONE 20% MUCOSAL SPRAY. MM (02:00)
--- NOTE | 2021-05-05 02:49 | RAD ---
AP abdomen HISTORY: Nasogastric tube placement. Small bowel obstruction. COMPARISON: CT abdomen May 04, 2021 FINDINGS: Placement of a nasogastric tube tip left upper quadrant radiographic region of the stomach. Excreted contrast within the kidneys and ureters noted. Mild gaseous distended small bowel loops rig ht upper quadrant abdomen stable. Lung bases unremarkable. Lumbar scoliosis. IMPRESSION: Small bowel obstruction grossly stable to recent CT imaging. Nasogastric intubation. Electronically signed by: Ashutosh Galdamez MD (05/05/2021 2:46 AM) [facility]
[2021-05-05 03:02] VITALS: BP 132/78
[2021-05-05] MEDS ORDERED: ONDANSETRON PF 4 MG/2 ML VIAL. ONE (03:35)
[2021-05-05] MEDS ORDERED: ONDANSETRON PF 4 MG/2 ML VIAL. IVP ONE (04:00)
== END 2021-05-05 04:12 | disposition short-term general hospital (02) ==
LOC: ER 23:07
DX: K56.609 Unspecified intestinal obstruction, unspecified as to partial versus complete obstruction (principal); R11.2 Nausea with vomiting, unspecified; K21.9 Gastro-esophageal reflux disease without esophagitis; F41.9 Anxiety disorder, unspecified; F32.9 Major depressive disorder, single episode, unspecified; Z20.822 Contact with and (suspected) exposure to COVID-19; Z90.710 Acquired absence of both cervix and uterus; Z88.5 Allergy status to narcotic agent; Z91.013 Allergy to seafood; Z91.030 Bee allergy status; Z88.8 Allergy status to other drugs, medicaments and biological substances
CPT/HCPCS: 36415; 74018; 74177; 80053; 81001; 83690; 85007; 85025; 87426; 96365; 96375; 96376; 99285; C9803; J2250; J2405; J2543; J3010; Q9967; U0003